=== PATIENT | female | born 1960 | race African-American/Black ===

== ENCOUNTER 2019-01-22 12:15 | Inpatient (IN) | payer OTHER ==
[~2019-01-22] VITALS: Ht 165.1 cm; Wt 73.9 kg
--- NOTE | 2019-01-22 01:10 | NUR ---
RECIEVED PT FROM ER ACCOMPANIED BY RN AND EMT. RESUMED CARE OF PT. A&OX4. SPEECH CLEAR AND APPROPRIATE. PERRL. EENT FREE OF DISCHARGE. NC 2L O2 SAT MID 90'S. PULSES MOD BUE AND WEAK BLE. CAP REFILL < 3 SEC. NO EDEMA NOTED. A FIB. S1S2 TO AUSC. LEVO INFUSING @ 2MCG/MIN. SKIN DRY/COOL/INTACT LOWER MELANIE EXTREMITIES DISCOLORATION W/ SCATTERED SCABS. L LOWER LEG CAST. L WRIST 18G. NS @ 100ML/HR. VOIDS FREELY. RENAL DIET. DENIES PAIN. CALM AND COOPERATIVE. MOTHER @ BEDSIDE.
--- NOTE | 2019-01-22 12:15 | NUR ---
PER MEDIC PT WAS FOUND ALOC AT [facility]. PER [facility] PT WAS C/O CHEST PAIN AND WAS GIVEN 0.4MG NITROGLYCERIN AT [facility]. MEDIC STS THAT SHE WAS GCS 13 UPON ARRIVAL, AA0&2 WITH BG 1. 18G LEFT WRIST. MEDIC GAVE 1000ML BOLUS FLUIDS. PER MEDIC PT HAS KINDNEY "ISSUES", BACK PAIN AND RIGHT TIB FIB FRATURE. +CAP REFILL MELANIE LOWER EXTREMITIES. PER MEDIC PT WAS HYPOTENSIVE UPON ARRIVAL. PT STS SHE HAS CHEST PAIN PRIOR TO ED BUT NOW DOES NOT. PT ABLE TO ANSWER ALL QUESTIONS AA0&4. RESP E/U. PT STS THAT THE ONLY THING HURTING HER IS HER LEFT LEG THAT HAS A CAST. PER PT THE CAST HAS BEEN ON FOR "MONTHS". PT MOANING IN PAIN FROM HER LEH PAIN. NO NEUROLOGICAL DEFICITS NOTED. PT HAS RIGHT ARM ARTHRITIS AND IS CONTRACTED TO ABDOMEN, RIGHT ARM HAS ARTHRITIS WITH SOME CONTRATION. ABLE TO MOVE ARM WITH NO PAIN. PT ABLE TO FOLLOW SIMPLE INSTRUCTIONS. DR. WAGGONER AT BEDSIDE FOR MSE. PT IS CURERNTLY HYPOTENSIVE. RESP E/U. WILL CONTINUE TO MONITOR. PT MOVED TO 2B REPORT GIVEN TO FLORIDALMA CAPUTO TO ASSUME CARE OF PT.
[2019-01-22 12:20] VITALS: Ht 165.1 cm; Wt 73.9 kg
--- NOTE | 2019-01-22 12:20 | NUR ---
RECEIVED PT INTO RM 2B. PT HYPOTENSIVE BUT PT IS NOT SYMPTOMATIC. PT ABLE TO ANSWER ALL QUESTIONS APPROPRIATELY AND FOLLOW DIRECTIONS ACURATELY. PT IS CURRENTLY REFUSING 'S RECOMMENDATION FOR CENTRAL LINE PLACEMENT. PT AAOX4, RESP EQUAL AND SLIGHTLY LABORED, PT MOTHER AT BEDSIDE, WILL CONTINUE TO MONITOR.
--- NOTE | 2019-01-22 12:30 | NUR ---
FLUIDS FOR SEPSIS PROTOCOL STARTED, UNABLE TO CHART IN EMAR. NS STARTED AT 1230 GOING AT 999.9 ML/HR, ENDED AT 1414, TOTAL OF 2220ML NS GIVEN.
--- NOTE | 2019-01-22 12:38 | NUR ---
DR. WAGGONER AT BEDSIDE FOR US.
[2019-01-22 13:15] LABS: CALCIUM 9.2 mg/dL (8.5-10.1); CARBON DIOXIDE 27.1 mmol/L (21-32); CHLORIDE SERUM 105 mmol/L (98-107); CREATININE SERUM 3.3 mg/dL (0.6-1.0); GFR1 15 mL/min; GLUCOSE SERUM 102 mg/dL (74-106); POTASSIUM SERUM 4.4 mmol/L (3.5-5.1); SODIUM SERUM 140 mmol/L (136-145)
[2019-01-22 13:19] LABS: ALBUMIN 2.4 g/dL (3.4-5.0); ALKALINE PHOSPHATASE 51 U/L (46-116); ALT/SGPT 17 U/L (14-59); AST/SGOT 12 U/L (15-37); BILIRUBIN TOTAL 0.4 mg/dL (0.20-1.00); TOTAL PROTEIN, SERUM 6.1 g/dL (6.4-8.2)
[2019-01-22 13:20] LABS: BASOPHIL % 0.5 % (0-2); PLATELET COUNT 197 x10^3mcL (130-400)
[2019-01-22 13:27] LABS: RED CELL DISTRIBUTION WIDTH 14.9 % (11.5-14.5)
--- NOTE | 2019-01-22 13:50 | NUR ---
PT AAOX4, RESP EQAUL AND UNLABORED, PT CONTINUES TO SAY "I FEEL MUCH BETTER". PT SON AND PT MOTHER AT BEDSIDE, WILL CONTINUE TO MONITOR.
--- NOTE | 2019-01-22 14:08 | NUR ---
OBTAINED URINE SAMPLE VIA STRAIGHT CATH, PT TOLERATED PROCEDURE WELL.
[2019-01-22 14:19] LABS: UA SPECIFIC GRAVITY <=1.005 (1.005-1.035); microscopic required? YES; urine erythrocyte NEGATIVE (NEGATIVE)
--- NOTE | 2019-01-22 15:28 | NUR ---
AT BEDSIDE DISCUSSING PLAN OF CARE WITH PT SON AND PT MOTHER.
[2019-01-22] MEDS ORDERED: ATENOLOL25 MG PO (16:26)
[2019-01-22] MEDS ORDERED: NOR5 PO (16:26)
[2019-01-22] MEDS ORDERED: CYCLOBENZAPRINE5 MG PO (16:27)
[2019-01-22] MEDS ORDERED: COL250 PO (16:28)
[2019-01-22] MEDS ORDERED: DULCOLAX10 M1 PR (16:28)
[2019-01-22] MEDS ORDERED: FERROUS SULFAT325 M2 PO (16:30)
[2019-01-22] MEDS ORDERED: LEVOTHYROXINE0.05 M2 PO (16:31)
--- NOTE | 2019-01-22 16:31 | NUR ---
MED REC COMPLETING USING LIST SENT FROM [facility].
--- NOTE | 2019-01-22 16:48 | NUR ---
AT BEDSIDE FOR MSE
--- NOTE | 2019-01-22 17:37 | NUR ---
LAB ATTEMPTED TO DRAW BLOOD, UNABLE TO DO SO CURRENTLY. WILL ATTEMPT AGIAN IN 15-20MINS.
--- NOTE | 2019-01-22 18:07 | NUR ---
LAB AND RESPIRATORY AT BEDSIDE TO ATTEMPT TO DRAW BLOOD FOR PT 2ND LACTIC ACID DRAW.
--- NOTE | 2019-01-22 19:27 | NUR ---
REPORT GIVEN TO HARSHAL MORRIS IN ICU TO ASSUME CARE OF PT.
--- NOTE | 2019-01-22 19:45 | NUR ---
RECIEVED REPORT FROM REPACK ROOM WORKER. NURSING UPDATES. POC DISCUSSED. AWAITING PT ARRIVAL.
[2019-01-22 21:13] VITALS: BP 113/76
--- NOTE | 2019-01-22 22:00 | NUR ---
PT W/ LOW O2 SATS IN THE 70-80'S. TITRATED N/C FROM 2LPM TO 3LPM. PT TOLERATED WELL O2 SATS MID 90'S. NO S/S OF DISTRESS. WILL CONT TO MONITOR.
[2019-01-22 23:41] VITALS: BP 113/59
--- NOTE | 2019-01-23 01:15 | NUR ---
NO ACUTE CHANGES. PT RESTING CALMLY IN BED W/ MOTHER @ BEDSIDE. WILL CONT TO MONITOR.
--- NOTE | 2019-01-23 02:56 | NUR ---
PT TOLERATEDING BP MAP > 65 X2 HOURS. TITRATED LEVO FROM 1MCG TO OFF. PT TOLERATED WELL. NO S/S OF HYPOTENSION. MAP >65 WILL CONT TO MONITOR.
[2019-01-23 03:12] VITALS: BP 105/54
--- NOTE | 2019-01-23 04:16 | NUR ---
PT RESTING CALMLY IN BED. NO ACUTE CHANGES. LEVO MAINTAINS OFF W/ MAP > 65 NO S/S OF HYPOTENSION. WILL CONT TO MONITOR AND ENDORSE.
--- NOTE | 2019-01-23 05:13 | NUR ---
SPOKE W/ JULISSA ON THE PHONE OF PT CONDITION. UPDATES PROVIDED TO PHONE CALL PROTOCOL.
[2019-01-23 05:58] LABS: CALCIUM 8.9 mg/dL (8.5-10.1); CARBON DIOXIDE 23.5 mmol/L (21-32); CREATININE SERUM 3.3 mg/dL (0.6-1.0); POTASSIUM SERUM 4.4 mmol/L (3.5-5.1)
[2019-01-23 06:15] LABS: BASOPHIL % 0.2 % (0-2); PLATELET COUNT 182 x10^3mcL (130-400)
[2019-01-23 06:17] LABS: RED CELL DISTRIBUTION WIDTH 15.2 % (11.5-14.5)
--- NOTE | 2019-01-23 06:34 | NUR ---
PT REPORTED NECK PAIN 10/20. ADMIN PRN NORCO *(SEE MAR)*. PT REPORTED RELIEF OF PAIN. WILL CONT TO MONITOR. BP WNL.
[2019-01-23 07:30] VITALS: BP 102/69
--- NOTE | 2019-01-23 07:30 | NUR ---
THE PATIENT AWAKE AND ORIENTED TO PERSON, PLACE AND TIME. PATIENT DENIES PAIN, NAUSEA/VOMITING OR SHORTNESS OF BREATH AT THIS TIME. PATIENT IS ON OXYGEN 3L/MIN VIA NASAL CANNULA. TELE # 6 READS SINUS RHYTHMS AT THIS TIME. IVF NS AT 100ML/HR VIA HEPLOCK AT LEFT WRIST. SHORT CAST TO LLE. CALL LIGHT WITHIN REACH. SIDE RAILS UP X3. BED AT LOWEST POSITION. ALARM IS ON. THE MOTHER IS AT BEDSIDE.
--- NOTE | 2019-01-23 08:10 | NUR ---
ECHOCARDIOGRAM PENDING-HAVING BREAKFAST
[2019-01-23 11:00] VITALS: BP 106/71
--- NOTE | 2019-01-23 11:53 | NUR ---
DR LORENZO TO ASSESS PATIENT. POC DISCUSSED WITH ALL QUESTIONS AND CONCERNS ADDRESSED. [facility] ST[facility]. PATIENT MADE AWARE.
[2019-01-23] MEDS ORDERED: PREDNISONE10 MG PO (12:05)
[2019-01-23] MEDS ORDERED: CEPHALEXIN500 MG PO (12:06)
--- NOTE | 2019-01-23 14:24 | NUR ---
DR. LINDQUIST IS AT BEDSIDE ASSESSING THE PATIENT.
--- NOTE | 2019-01-23 15:04 | NUR ---
DR LINDQUIST AT BEDSIDE ASSESSING PATIENT. UPDATES PROVIDED TO PATIENT AND MOTHER WITH POC DISCUSSED.
--- NOTE | 2019-01-23 15:10 | NUR ---
THE NASAL CANNULA REMOVED FROM THE NOSE; THE PATIENT'S OXYGEN SAT >=94%.
--- NOTE | 2019-01-23 15:30 | NUR ---
SPOKE WITH DR LORENZO AND PROVIDED PATIENT UPDATE. NEW ORDERS RECEIVED. WILL CARRY OUT ORDERS.
[2019-01-23 15:42] VITALS: BP 151/97
--- NOTE | 2019-01-23 16:07 | NUR ---
SELENE, PHYSICAL THERAPIST IS AT BEDSIDE FOR PT.
--- NOTE | 2019-01-23 18:03 | NUR ---
PATIENT BEING TRANSFERRED TO 206A. PATIENT AND HER MOTHER MADE AWARE OF TRANSFER. REPORT CALLED TO RADHIKA CAPUTO WITH ALL QUESTIONS AND CONCERNS ADDRESSED. RADHIKA CAPUTO MADE AWARE THAT PATIENT HAS MD APPOINMENT TOMORROW AND NEEDS TO BE TRANSFERRED BACK TO [facility].
--- NOTE | 2019-01-23 18:16 | NUR ---
NEW IV SITE INSERTED TO RFA WITH #22G. PATIENT TOLERATED WITH PROCEDURE.
--- NOTE | 2019-01-23 18:40 | NUR ---
PATIENT TRANSFERRED TO ROOM 2O6B VIA BED IN STABLE CONDITION. ALL BELONGINGS TRANSFERRED WITH THE PATIENT. THE PATIENT'S FAMILY INCLUDING HER MOTHER IS AT BEDSIDE WITH THE PATIENT.
[2019-01-23 18:45] VITALS: BP 129/66
--- NOTE | 2019-01-23 18:45 | NUR ---
RECEIVED PT. FROM ICU DEPT. A/A/O X3. NO SOB, NO N/V NOTED. PT. DENIES ANY PAIN AT THIS TIME. IVF NS RESUMED AT 100 CC/HR VIA IV SITE AT R FA. B/P= 129/66 (86), P= 96, R.R.= 18, T= 99.7, O2 SAT.= 94% (RA). PT. IS PLACED ON TELE. MONITOR #1 WHICH SHOWS NSR. PT. HAS A CAST TO HER LLE. L ARM IMMOBILIZER IN PLACE. BED IN LOW POS., CALL LIGHT WITHIN REACH. SIDE RAILS UP X3. WILL CONTINUE TO MONITOR. MOTHER AT BEDSIDE.
--- NOTE | 2019-01-23 19:30 | NUR ---
RECEIVED REPORT FROM DAY SHIFT RN. PT SITTING UP IN BED. AA&O X4. NO SOB ON ROOM AIR. BREATHING EVEN AND UNLABORED. IV TO RFA, NS INFUSING. SHORT CAST TO LLE AND SPLINT TO LEFT WRIST/HAND. SAFETY MEASURES IN PLACE. BED IN LOWEST POSITION. SIDE RAILS UP X2. INSTRUCTED PT TO USE THE CALL LIGHT FOR ASSISTANCE. CALL LIGHT WITHIN REACH.
[2019-01-23 20:35] VITALS: BP 134/66
--- NOTE | 2019-01-24 03:56 | NUR ---
PT C/O LLE THROBBING PAIN 02/20. NORCO GIVEN.
[2019-01-24 05:14] VITALS: BP 140/73
--- NOTE | 2019-01-24 06:50 | NUR ---
PT RESTED IN LONG INTERVALS. NO SOB ON ROOM AIR. NO DISTRESS NOTED. CLEANED PT AND MADE COMFORTABLE. SHORT CAST TO LLE. SPLINT TO LEFT WRIST/HAND. SAFETY MEASURES MAINTAINED. ALL NEEDS ATTENDED TO. CALL LIGHT WITHIN REACH. WILL ENDORSE CONTINUITY OF CARE TO ONCOMING RN.
--- NOTE | 2019-01-24 07:25 | NUR ---
PT IS AAOX4. TELE [address] READING NSR. LUNG SOUNDS CTA. ON R/A. NO COUGH OR SOB NOTED. PT HAS R HAND TRACE EDEMA AND SCATTERED SCABS, [place] TO RLE. CAST IN PLACE TO LLE AND CONTRACT L HAND WITH SPLINT IN PLACE. IV CATH TO RFA WITH FLUIDS RUNNING, PATENT, SITE WNL. NO S/S OF INFECTION NOTED. PT DENIES PAIN AT THIS TIME. CALL LIGTH WITHIN REACH. BED IN LOWEST POSITION. FALL PROTOCOL WILL BE MAINTAINED THROUGHOUT SHIFT.
[2019-01-24 07:40] VITALS: BP 159/78
--- NOTE | 2019-01-24 09:45 | NUR ---
PT SITTING UP IN BED WATCHING TV. RESP EVEN AND UNLABORED. NO DISTRESS NOTED. DUE MEDS GIVEN AND TOLERATED WELL. DENIES PAIN AT THIS TIME ELEVATED ON PILLOW. CALL LIGHT IN REACH.
[2019-01-24 10:02] VITALS: BP 153/76
--- NOTE | 2019-01-24 10:20 | NUR ---
PT INFORMED SHE WILL TRANSFER TO [facility] AT 11OO. PT TO BE PICKED UP BY [facility]. PT MOTHER MADE AWARE. REPORT GIVEN TO MILA JOHNSON LVN. PT TO BE FOLLOWED BY DR. PEARSON AND TO GO TO ROOM 14.
--- NOTE | 2019-01-24 11:20 | NUR ---
PT TRANSFERRED BY [facility] TO [facility]. PT WAS IN NO DISTRESS. TRANSFER INSTRUCTIONS REVEIWED WITH PT, ALL FORMS SIGNED, ALL QUESTIONS ANSWERED. IV CATH TO RFA REMOVED INTACT. SITE WNL. PICTURES OF SCATTERED SCABS ON RLE TAKEN AND PLACED IN CHART. VS: 97.6, 83, 20, 153/76, 93 % ON R/A. PT DENIES PAIN AT TIME OF DISCHARGE. ALL PERSONAL BELONGING TAKEN WITH PT. TELE 1 TAKEN DOWN AND RETURNED TO [employer].
== END 2019-01-24 11:23 | DRG 720 ==
LOC: ED 12:15 → IC 14:00 → DU 01-23 18:39
PROVIDERS: Emergency Medicine; ADMIT Internal Medicine Pulmonary Disease
DX: A41.9 Sepsis, unspecified organism (principal); E11.22 Type 2 diabetes mellitus with diabetic chronic kidney disease; N18.4 Chronic kidney disease, stage 4 (severe); I48.0 Paroxysmal atrial fibrillation; D86.9 Sarcoidosis, unspecified; N39.0 Urinary tract infection, site not specified; I12.9 Hypertensive chronic kidney disease with stage 1 through stage 4 chronic kidney disease, or unspecified chronic kidney disease; E03.9 Hypothyroidism, unspecified; Z91.041 Radiographic dye allergy status; Z79.899 Other long term (current) drug therapy
CPT/HCPCS: 36600; 85378; 97530-GP; G0378; J1650; J2543; J3490; J7030; J7512; Q0092